=== PATIENT | male | born 1980 | race Caucasian/White ===

== ENCOUNTER 2017-12-05 14:01 | Emergency (ER) | payer BC ==
[~2017-12-05] VITALS: Ht 167.6 cm; Wt 112.0 kg
[2017-12-05 14:27] VITALS: BP 117/61; PULSE 76; RESP 17; TEMP 98.7
--- NOTE | 2017-12-05 14:29 | PD ---
HPI Chief Complaint: knee injury Time Seen by Provider: 14:14 Travel History International Travel<30 days: No Contact w/Intl Traveler<30days: No Traveled to known affect area: No History of Present Illness HPI This patient complains of injury to his left knee. Duration 1 hour. Severity is moderate. He was in the bathroom and his left ankle slipped and twisted. This causes needed twist and he says his kneecap popped out. He says this is a third time it is dislocated. Paramedics were called and he received a morphine injection. He says this relaxes muscle enough so he could pop it back into place. He arrives with a beanbag splint and says that he is no longer dislocated. No alleviating factors. no Exacerbating factors. He is visiting from [place] and will be here for one week. [facility] Social History Alcohol Use: No Tobacco Use: No Substance Use: No Review of Systems General / Constitutional: No: Fever Eyes: No: Visual changes HENT: No: Headaches Cardiovascular: No: Chest Pain or Discomfort Respiratory: No: Shortness of Breath Gastrointestinal: No: Abdominal Pain Genitourinary: No: Dysuria Musculoskeletal: Positive: Arthralgias, Limited ROM, Pain Skin: No Rash Neurologic: No: Weakness Psychiatric: No: Depression Endocrine: No: Polydipsia Hematologic/Lymphatic: No: Easy Bruising Physical Exam Narrative GENERAL: Well-nourished, well-developed patient in no apparent distress. SKIN: Focused skin assessment reveals no rash and nodules. Skin is Warm and dry. HEAD: Atraumatic. Normocephalic. EYES: Pupils equal and round. No scleral icterus. No injection or drainage. ENT: No nasal bleeding or discharge. Mucous membranes pink and moist. NECK: Trachea midline. No JVD. CARDIOVASCULAR: Regular rate and rhythm. No murmur appreciated. RESPIRATORY: No accessory muscle use. Clear to auscultation. Breath sounds equal bilaterally. GASTROINTESTINAL: Abdomen soft, non-tender, nondistended. Hepatic and splenic margins not palpable. MUSCULOSKELETAL: No obvious deformities. No clubbing. No cyanosis. No edema. Left knee does not appear dislocated. No effusion or erythema or warmth. Left leg is neurovascularly intact NEUROLOGICAL: Awake and alert. No obvious cranial nerve deficits. Motor grossly within normal limits. Normal speech. PSYCHIATRIC: Appropriate mood and affect; insight and judgment normal. Data Data Last Documented VS Vital Signs Date Time Temp Pulse Resp B/P (MAP) Pulse Ox O2 Delivery O2 Flow Rate FiO2 12/05/17 14:27 98.7 76 17 117/61 (79) Orders Orders Knee, Ltd (1 Or 2vws) (12/05/17 ) Crutches (12/05/17 15:38) ^ Knee Immobilizer (12/05/17 15:38) MDM Medical Decision Making Medical Screen Exam Complete: Yes Emergency Medical Condition: Yes Medical Record Reviewed: Yes Differential Diagnosis Patellar dislocation, soft tissue injury, contusion Narrative Course I have reviewed the patient's electronic medical record. Left leg is neurovascularly intact without objective findings I reviewed his left knee x-rays which are normal I'm giving him a left knee immobilizer and crutches He will need to follow-up with orthopedic back in [place] Recommend ice and elevation and no weightbearing in the meantime Diagnosis Primary Impression: Soft tissue injury of left knee Qualified Codes: S89.92XA - Unspecified injury of left lower leg, initial encounter Additional Instructions: Follow-up with orthopedist Wear immobilizer and use crutches Ice and elevate left knee Med/Other Pt SpecificInfo: Other Disposition: 01 DISCHARGE HOME Condition: Stable Rachid Akbar MD Dec 05, 2017 14:29
--- NOTE | 2017-12-05 15:31 | RADRPT ---
EXAM DATE/TIME: 12/05/2017 14:53 [facility] COMPARISON: No previous studies available for comparison. INDICATIONS : Evaluate for dislocation. Patient twisted leg and fell and states their knee dislocated. History of l eft knee dislocation. MEDICAL HISTORY : History of multiple left knee dislocation. SURGICAL HISTORY : None. ENCOUNTER: Initial ACUITY: 1 day PAIN SCORE: 4/10 LOCATION: Left Knee FINDINGS: Two view examination of the left knee demonstrates no evidence of fracture or dislocation. Bony mine ralization is normal. The suprapatellar soft tissues have a normal configuration. CONCLUSION: Normal examination for a patient of this age. Abran Mancera MD on December 05, 2017 at 15:28 Board Certified Radiologist. This report was verified electronically.
[2017-12-05 17:06] VITALS: BP 131/75
== END 2017-12-05 17:06 | disposition home or self-care (01) ==
LOC: NEPD 14:01
DX: S89.92XA Unspecified injury of left lower leg, initial encounter (principal); X50.1XXA Overexertion from prolonged static or awkward postures, initial encounter
CPT/HCPCS: 73560; 99283; E0113; L1830